=== PATIENT | male | born 1970 | race African-American/Black ===

== ENCOUNTER 2025-04-23 21:31 | Emergency (ER) | payer MEDICAID, OTHER ==
[~2025-04-23] VITALS: Ht 172.7 cm; Wt 90.7 kg
[2025-04-23 22:06] LABS: Basophils # (auto) 0.1 10 ^3/uL (0-0.2); Eosinophils # (auto) 0.1 10 ^3/uL (0-0.8); Eosinophils % (auto) 1.8 % (0.0-7.0); Hematocrit 42.8 % (41.0-53.0); Hemoglobin 14.2 g/dL (13.5-17.5); Lymphocytes # (auto) 2.6 10 ^3/uL (0.4-5.4); Lymphocytes % (auto) 40.9 % (10.0-50.0); Mean Corpuscular Hemoglobin 27.9 pg (28.0-32.0); Mean Corpuscular Hgb Conc. 33.1 g/dL (32.0-36.0); Mean Corpuscular Volume 84.1 fL (80.0-100.0); Monocytes # (auto) 0.5 10 ^3/uL (0-1.3); Monocytes % (auto) 8.4 % (0.0-12.0); Neutrophils # (auto) 3.1 10 ^3/uL (1.6-8.6); Neutrophils % (auto) 47.9 % (37.0-80.0); Nucleated Red Blood Cells % 0.1 %; Platelet Count (auto) 256 10^3/uL (140-450); Red Blood Cells 5.09 10^6/uL (4.5-5.90); Red Cell Distribution Width 15.3 % (11.8-14.3); White Blood Cell 6.4 10^3/uL (4.4-10.8)
[2025-04-23 22:11] LABS: Potassium 3.9 mmol/L (3.5-5.1); Sodium 141 mmol/L (136-145)
[2025-04-23 22:12] LABS: Calcium 9.5 mg/dL (8.7-10.4)
[2025-04-23 22:16] LABS: Chloride 107 mmol/L (98-107)
[2025-04-23 22:17] LABS: BUN/Creatinine Ratio 13.3 (10.0-20.0); Blood Urea Nitrogen 16 mg/dL (9-23); Glucose 116 mg/dL (74-106)
[2025-04-23 22:22] LABS: Anion Gap 10 (5-15); Carbon Dioxide 24 mmol/L (20-31)
[2025-04-23 22:35] VITALS: BP 134/85; TEMP 99.2
[2025-04-23 22:37] VITALS: RESP 21; O2SAT 96
[2025-04-23 23:03] VITALS: PULSE 121
--- NOTE | 2025-04-23 23:03 | ED.PDOC ---
History of Present Illness HPI Comments 55 y/o obese M, with a history of polysubstance abuse, is BIBA for overdose of unknown substance, this evening. Per EMS report, patient became altered, characterized by decrease responsiveness, after smoking an unknown substance suspected of containing an opiate. On scene, EMS notes on patient having pinpoin t pupils. He was given 4mg Narcan at home and an additional 4mg Narcan by [facility] prior to coming to. Upon arrival to ED, patient is stated to be back to his usual baseline of A&Ox4, with no further complaints. Vitals stated to be stable and within normal limits, with exception on being tachycardic in the 130's range. At time of assessment, patient reports only smoking a "joint" and refutes any inquires on taking any opiate drugs at this time. Chief Complaint: Overdose Time Seen by MD: 21:40 Reviewed Notes: Nurses Notes, City Constable Notes, Medications, Allergies Allergies: Coded Allergies: NO KNOWN ALLERGIES (Unverified , 10/11/13) Information Source: Patient, Emergency Med Personnel Mode of Arrival: EMS Severity: Moderate Timing: Hours Duration: Minutes Prehospital treatment: 12 Lead EKG, Stippler, Treatment (8mg Narcan ) Past Medical History PAST MEDICAL HISTORY: Denies Surgical History: Denies all surgeries Family History Family History: Unknown Social History Smoker: Non-Smoker Alcohol: Occasionally Drugs: Marijuana, Other (opiate) Lives In: Home All Other Systems: Reviewed and Negative (Comprehensive systems review obtained and negative except for what is stated in the HPI.) Physical Exam General Appearance: No Apparent Distress, Obese HEENT: Pharynx Normal, TMs Normal, Other (pinpoint pupils; otherwise normal HEENT inspection ) Neck: Full Range of Motion, Non-Tender, Normal, Normal Inspection Respiratory: Chest Non-Tender, Lungs Clear, No Accessory Muscle Use, No Respiratory Distress, Normal Breath Sounds Cardiovascular: No Edema, No JVD, No Murmur, No Gallop, Normal Peripheral Pulses, Regular Rate/Rhythm Breast Exam: Deferred Gastrointestinal: No Organomegaly, Non Tender, No Pulsatile Mass, Normal Bowel Sounds, Soft Genitalia: Deferred Pelvic: Deferred Rectal: Deferred Extremities: No calf tenderness, Normal capillary refill, Normal inspection, Normal range of motion, Non-tender, No pedal edema Musculoskeletal : Apperance: Normal Neurologic: Alert, metal container maker II-XII nml as Tested, No Motor Deficits, Normal Affect, Normal Mood, No Sensory Deficits Cerebellar Function: Normal Reflexes: Normal Skin: Dry, Normal Color, Warm Lymphatic: No Adenopathy Was a procedure done? Was a procedure done?: No EKG EKG : Pulse Rate (adult): 121 [place]: Normal Cardiac Rhythm: ST Block: None Hypertrophy: None ST: Normal Differential Dx Considerations may include: opiate overdose, substance abuse, substance dependency, toxic metabolic encephalopathy, among others X-Ray, Labs, Meds, VS Vital Signs Date Time Temp Pulse Resp B/P (MAP) Pulse Ox O2 Delivery O2 Flow Rate FiO2 04/23/25 22:37 21 96 Nasal Cannula* 2 28 04/23/25 22:35 99.2 116 21 134/85 (101) 93 99.2 04/23/25 21:48 121 04/23/25 21:47 98.0 131 24 155/93 (113) 94 98.0 Lab Test 04/23/25 21:52 Range/Units White Blood Count 6.4 4.4-10.8 10^3/uL Red Blood Count 5.09 4.5-5.90 10^6/uL Hemoglobin 14.2 13.5-17.5 g/dL Hematocrit 42.8 41.0-53.0 % Mean Corpuscular Volume 84.1 80.0-100.0 fL Mean Corpuscular Hemoglobin 27.9 L 28.0-32.0 pg Mean Corpuscular Hemoglobin Concent 33.1 32.0-36.0 g/dL Red Cell Distribution Width 15.3 H 11.8-14.3 % Platelet Count 256 140-450 10^3/uL Mean Platelet Volume 8.7 6.9-10.8 fL Neutrophils (%) (Auto) 47.9 37.0-80.0 % Lymphocytes (%) (Auto) 40.9 10.0-50.0 % Monocytes (%) (Auto) 8.4 0.0-12.0 % Eosinophils (%) (Auto) 1.8 0.0-7.0 % Basophils (%) (Auto) 1.0 0.0-2.0 % Neutrophils # (Auto) 3.1 1.6-8.6 10 ^3/uL Lymphocytes # (Auto) 2.6 0.4-5.4 10 ^3/uL Monocytes # (Auto) 0.5 0-1.3 10 ^3/uL Eosinophils # (Auto) 0.1 0-0.8 10 ^3/uL Basophils # (Auto) 0.1 0-0.2 10 ^3/uL Nucleated Red Blood Cells 0.1 % Sodium Level 141 136-145 mmol/L Potassium Level 3.9 3.5-5.1 mmol/L Chloride Level 107 98-107 mmol/L Carbon Dioxide Level 24 20-31 mmol/L Anion Gap 10 5-15 Blood Urea Nitrogen 16 9-23 mg/dL Creatinine 1.20 0.700-1.30 mg/dL Glomerular Filtration Rate Calc 71 >90 mL/min BUN/Creatinine Ratio 13.3 10.0-20.0 Serum Glucose 116 H 74-106 mg/dL Calcium Level 9.5 8.7-10.4 mg/dL Time of 1ST Reevaluation: 22:20 Reevaluation 1ST: Unchanged Patient Education/Counseling: Diagnosis, Treatment, Other (observation and monitoring ) Family Education/Counseling: No Family Present Additional Information Previous visits reviewed: October 11, 2013 encounter for lower back pain The following tests were ordered, and results were reviewed by me: EKG, CXR, CBC, BMP Additional Information was gathered from interviewing the following independent historians: EMS I reviewed and agreed with the following test results read by other providers: CXR I discussed treatment and results with medical personnel and: patient Departure 1 Departure Time of Disposition: 23:03 (Patient presenting with an opiate overdose. Patient was a monitored and patient is feeling significantly better. Patient would like to go home and he is A&O x4. We will discharge patient home with outpatient follow up) Impression: Primary Impression: Opiate overdose Qualified Codes: T40.601A - Poisoning by unspecified narcotics, accidental (unintentional), initial encounter Disposition: HOME / SELF CARE / HOMELESS Condition: Stable Additional Instructions: Do not use drugs. There are resources to help you quit. You can call: [phone]-HELP [phone] If your symptoms worsen or you have any other concerns please return to the emergency room. Discharged With: Self Critical Care Note Critical Care Time?: No Stability Stability form required: No Heart Score Heart Score: Heart Score Response (Comments) Value History N/A 0 EKG N/A 0 Age N/A 0 Risk Factors N/A 0 Troponin N/A 0 Total 0 I personally scribed for CHARLIE DILLON MD ([email or web address]) on 04/23/25 at 23:03. Electronically submitted by Cortes Seymour ([email or web address]). CHARLIE DILLON MD Apr 23, 2025 23:03
--- NOTE | 2025-04-24 12:21 | ECG ---
[facility] Test Date: 2025-04-23 Test Time: 21:48:42 Pat Name: LUCINA RAIN Department: ED Room: Gender: M Rolled [employer] Lacer: : 1970 Requested By: CHARLIE DILLON Order Number: [id number] Reading MD: Yuri Grajeda Measurements Intervals [place] Rate: 121 P: 44 [place]: 151 QRS: -8 QRSD: 82 T: 34 QT: 318 QTc: 452 Interpretive Statements Sinus tachycardia Inferior infarct, old Electronically Signed On 04-25-2025 14:57:49 PDT by Yuri Grajeda Please click the below link to view image of tracing.
--- NOTE | 2025-04-24 17:39 | DVH ---
INDICATION: overdose TECHNIQUE: Frontal view of the chest. COMPARISON: None FINDINGS: The cardiomediastinal silhouette is within normal limits for size . There is no focal airspace disea se. There is no significant pleural effusion. There is no pneumothorax. No acute osseous abnormalit y is identified . There is partial visualization as fixation screws at the left humeral head. IMPRESSION: No radiographic evidence of acute cardiopulmonary process.
== END 2025-04-23 23:08 | disposition home or self-care (01) ==
LOC: EDBD 21:31 → ER 21:36
DX: T40.601A Poisoning by unspecified narcotics, accidental (unintentional), initial encounter (principal); F19.90 Other psychoactive substance use, unspecified, uncomplicated; F12.90 Cannabis use, unspecified, uncomplicated; E66.9 Obesity, unspecified; Z68.30 Body mass index [BMI] 30.0-30.9, adult; Y92.89 Other specified places as the place of occurrence of the external cause
CPT/HCPCS: 36415; 71045; 80048; 85025; 93005